=== PATIENT | female | born 1945 ===

== ENCOUNTER 2017-02-05 07:08 | Day surgery (SDC) | payer MEDICARE, BC ==
[2015-05-31 12:52] VITALS: BMI 27.3
[2017-02-05] MEDS ORDERED: Propofol 10 mg/ml Inj (20 ML) ONE (08:09)
[2017-02-05] MEDS ORDERED: Lidocaine 1% Inj (20ml) ONE (08:09)
[2017-02-05] MEDS ORDERED: Sodium Chloride 0.9% 1,000 ML IV SCH (08:30)
[2017-02-05 08:46] VITALS: RESP 16
[2017-02-05] MEDS ORDERED: Levalbuterol 1.25 MG/3 ML Inhal Soln UD ONE (09:08)
[2017-02-05 09:21] VITALS: BP 140/67; PULSE 75; TEMP 98.9; O2SAT 100
== END 2017-02-05 10:04 | disposition home or self-care (01) ==
LOC: ENDO 07:08
PROVIDERS: ATTEND Internal Medicine Gastroenterology
DX: K74.3 Primary biliary cirrhosis (principal); Z13.810 Encounter for screening for upper gastrointestinal disorder; K29.50 Unspecified chronic gastritis without bleeding; K21.9 Gastro-esophageal reflux disease without esophagitis; E11.9 Type 2 diabetes mellitus without complications
CPT/HCPCS: 43239; 88305; 88312; 88342; J2704; J7040 ×2

== ENCOUNTER 2018-05-25 13:39 | Outpatient (CLI) | payer MEDICARE, BC | END 2018-05-25 13:40 | disposition home or self-care (01) | LOC: RAD 13:39 ==

== ENCOUNTER 2018-07-12 13:20 | Outpatient (CLI) | payer MEDICARE, BC | END 2018-07-12 13:21 | disposition home or self-care (01) | LOC: RAD 13:21 ==